=== PATIENT | female | born 1975 ===

== ENCOUNTER 2024-07-05 18:27 | Emergency (ER) | payer SELFPAY ==
[~2024-07-05] VITALS: Ht 170.2 cm; Wt 63.7 kg
[2024-07-05 18:31] VITALS: BP 134/95; PULSE 104; RESP 15; TEMP 98.5; O2SAT 98
== END 2024-07-05 19:09 | disposition left against medical advice (07) ==
LOC: ER 18:29
DX: Z48.00 Encounter for change or removal of nonsurgical wound dressing (principal); Z53.21 Procedure and treatment not carried out due to patient leaving prior to being seen by health care provider

== ENCOUNTER 2024-07-31 16:38 | Emergency (ER) | payer SELFPAY ==
[~2024-07-31] VITALS: Ht 167.6 cm; Wt 54.5 kg
[2024-07-31 17:03] VITALS: PULSE 96; RESP 16; TEMP 98; O2SAT 98
== END 2024-07-31 17:48 | disposition left against medical advice (07) ==
LOC: ER 16:39
DX: Z00.8 Encounter for other general examination (principal); Z53.21 Procedure and treatment not carried out due to patient leaving prior to being seen by health care provider